=== PATIENT | female | born 1980 | race Caucasian/White ===

== ENCOUNTER 2016-05-15 16:08 | Emergency (ER) ==
[2016-05-15 16:22] VITALS: TEMP 97.2; BMI 32.5
--- NOTE | 2016-05-15 16:48 | ED.PDOC ---
General ED Provider: Dr. YIN ABDUL JR Chief Complaint: Sore Throat Stated Complaint: PROGRESSIVELY LESSENING VOICE AND INCREASING SORE THROAT FOR 1 WEEK COUGHING AT NIGHT (NON PRODUCTIVE) ALONG WITH SORE THROAT AND NO VOICE [End]CLARITHROMYCIN, PREDNISONE DOSE PACK 97.2 79 20 98% 156/110 nephew reportedly had strep has been on clarithro and medrol since 3-13 Time Seen by Physician: 16:43 Mode of Arrival: Walk-In Information Source: Patient Exam Limitations: No limitations, Clinical condition Primary Care Provider: KRISTEN REN Nursing and Triage Documentation Reviewed and Agree: No Review of Systems - Review Of Systems Constitutional: Reports: Malaise (hot flashes) Eyes: Reports: No symptoms Ears, Nose, Mouth, Throat: Reports: Throat pain (hoarseness) Respiratory: Reports: Stridor Cardiac: Reports: No symptoms GI: Reports: No symptoms : Reports: No symptoms Musculoskeletal: Reports: No symptoms Skin: Reports: No symptoms Neurological: Reports: No symptoms Endocrine: Reports: No symptoms Hematologic/Lymphatic: Reports: No symptoms All Other Systems: Other Past Medical History - Past Medical History Endocrine: Reports: None Cardiovascular: Reports: None Respiratory: Reports: None Hematological: Reports: None Gastrointestinal: Reports: None Genitourinary: Reports: None Neuro/Psych: Reports: None Musculoskeletal: Reports: None, Arthritis (djd) Cancer: Reports: None Last Menstrual Period: N/A Other Pertinent Past Medical History: DJD - Surgical History General Surgical History: Reports: Hysterectomy - Family History Family History: Reports: None - Social History Smoking Status: Never smoker Hx Substance Use: No Alcohol Screening: None - Immunizations Tetanus Shot up to Date: No Physical Exam - Physical Exam Appearance: Well-appearing Eyes: DAVID, EOMI, Conjunctiva clear ENT: Exudate (right tonsil) Neck: Supple (tender submandibular nodes) Respiratory: Airway patent, Breath sounds clear, Breath sounds equal, Respirations nonlabored Cardiovascular: RRR, Pulses normal, No rub, No murmur GI/: Soft, Nontender, No masses, Bowel sounds normal, No Organomegaly Musculoskeletal: Normal strength, ROM intact, No edema, No calf tenderness Skin: Warm, Dry, Normal color Neurological: Sensation intact, Motor intact, Reflexes intact, Cranial nerves intact, Alert, Oriented Psychiatric: Affect appropriate, Mood appropriate Critical Care Note - Critical Care Note Total Time (mins): 0 Course - Course Orders, Labs, Meds: Orders Category Date Time Status RAPID FLU A/B Stat LAB 05/15/16 16:37 Uncollected STREP SCREEN Stat LAB 05/15/16 16:37 Uncollected Vital Signs: Temp Pulse Resp BP Pulse Ox 05/15/16 16:08 97.2 F L 79 20 156/110 H 98 Departure - Departure Time of Disposition: 16:52 Disposition: HOME SELF-CARE Discharge Problem: Sore throat symptom Instructions: Pharyngitis (ED) Condition: Fair Pt referred to PMD for follow-up: Yes Additional Instructions: check blood pressure daily and record call PMD in 2 days and report condition antibiotic until cone may stop clarithromycin and medrol may repeat medrol if needed take temperature daily until resolved Prescriptions: Amoxicillin/Potassium Clav [Augmentin 875-125 mg Tab] 1 tab PO BIDWM #20 tablet Methylprednisolone [Medrol Dosepak] 4 mg PO DIRECTED #1 pkg Allergies/Adverse Reactions: Allergies No Known Allergies Allergy (Verified 05/15/16 16:17) Home Medications: Ambulatory Orders Amoxicillin/Potassium Clav [Augmentin 875-125 mg Tab] 1 tab PO BIDWM #20 tablet 05/15/16 Methylprednisolone [Medrol Dosepak] 4 mg PO DIRECTED #1 pkg 05/15/16
[2016-05-15] MEDS ORDERED: SOLU-MEDROL 125 MG IM STA (16:52)
[2016-05-15 17:07] VITALS: BP 156/108
[2016-05-15 17:19] LABS: FLU INTERNAL QC INTERNAL QC VALID; RAPID FLU A NEGATIVE (NEGATIVE); RAPID FLU B NEGATIVE (NEGATIVE)
== END 2016-05-15 17:27 | disposition home or self-care (01) ==
LOC: ED 16:08
DX: J02.9 Acute pharyngitis, unspecified (principal)
CPT/HCPCS: 87651; 87804; 87880; 96372; 99282

== ENCOUNTER 2016-06-18 19:41 | Emergency (ER) ==
[2016-06-18 19:56] VITALS: BP 168/100; TEMP 99.1; BMI 33.7
[2016-06-18 20:29] LABS: BILIRUBIN,URINE Negative (NEGATIVE); KETONES,URINE Negative (NEGATIVE); LEUKOCYTE ESTERASE ,URINE Negative (NEGATIVE); NITRITE,URINE Negative (NEGATIVE); PH,URINE 5.5 (5-9); PROTEIN,URINE Negative (NEGATIVE); URINE, BLOOD 1+ (NEGATIVE)
[2016-06-18 20:35] LABS: ADD URINE MICROSCOPIC YES
[2016-06-18] MEDS ORDERED: STADOL IM STA (20:35)
--- NOTE | 2016-06-18 21:08 | CT ---
EXAM: CT lumbar spine without intravenous contrast 06/18/2016. Sagittal and coronal reformatted im ages obtained HISTORY: Low back pain. Radiculopathy. COMPARISON: 03/10/2013 FINDINGS: A normal lumbar lordosis is maintained. Vertebral bodies appear intact without evidence of fracture the facet joints align normally. There is no fracture or subluxation at any level. The spinal canal appears patent. The neural foramina appear grossly patent. Broad-based phasicity bulge flattens thecal sac most prominent at L3-L4 and L4-L5. IMPRESSION: No acute osseous abnormality of the lumbar spine. Mild degenerative disc disease. Fl attening of the thecal sac at L3-L4 and L4-L5. No definitive spinal stenosis.
--- NOTE | 2016-06-18 21:17 | ED.PDOC ---
General ED Provider: Dr. DELMAR HERNANDEZ Chief Complaint: Back Pain Stated Complaint: Patient presents to the ER with lower back pain for the past 2 days. Has a history of lower back surgery one year ago that went well and has not had any problems since. Denies any trauma or heavy lifting prior to the pain. Has taken Tylenol and Motrin without any relief. Time Seen by Physician: 21:15 Mode of Arrival: Walk-In Information Source: Patient Exam Limitations: No limitations Primary Care Provider: KRISTEN REN Nursing and Triage Documentation Reviewed and Agree: Yes Musculoskeletal Complaint Exam - Back Pain Complaint/Exam Mechanism of Injury: Reports: No known trauma Onset/Duration: 2 days Symptoms Are: Still present Timing: Constant Initial Severity: Moderate Current Severity: Moderate Location: Reports: Discrete (Left lower back ) Character: Reports: Aching, Throbbing Aggravating: Reports: Movements Alleviating: Reports: Rest Associated Signs and Symptoms: Denies: Swelling, Redness, Bruising, Fever, Weakness, Numbness, Tingling, Abdominal pain, Bladder incontinence, Bowel incontinence, Weight loss, Pain with weight bearing TAD Risk Factors: Reports: None AAA Risk Factors: Reports: None Cauda Equina Risk Factors: Reports: None Epidural Abcess Risk Factors: Reports: None Related Surgical History: Reports: Back Surgery (one year ago ) Focal Tenderness: Yes (Lower back ) Paraspinal Muscle Tenderness: Yes Paraspinal Muscle Spasm: Yes Scoliosis: No Lordosis: No Kyphosis: No SLR Test: Right Negative, Left Negative Hip Motion Testing Pain: Right Negative, Left Negative Focal Weakness: Present: None Focal Sensory Loss: Present: None Gait: Present: Normal Back Picture: 1 - pain with tenderness 2 - radiation Differential Diagnoses: Cauda Equina Syndrome, Epidural Abcess, Fracture, Herniated Disk, Strain, Sprain Review of Systems - Review Of Systems Constitutional: Reports: No symptoms Eyes: Reports: No symptoms Ears, Nose, Mouth, Throat: Reports: No symptoms Respiratory: Reports: No symptoms Cardiac: Reports: No symptoms GI: Reports: No symptoms Musculoskeletal: Reports: Back pain, Joint pain Neurological: Reports: Anxiety All Other Systems: Reviewed and Negative Past Medical History - Past Medical History Endocrine: Reports: None Cardiovascular: Reports: None Respiratory: Reports: None Hematological: Reports: None Gastrointestinal: Reports: None Genitourinary: Reports: None Neuro/Psych: Reports: None Musculoskeletal: Reports: None, Arthritis (djd) Cancer: Reports: None Last Menstrual Period: hysterectomy Other Pertinent Past Medical History: DJD - Surgical History General Surgical History: Reports: Hysterectomy - Family History Family History: Reports: None - Social History Smoking Status: Never smoker Hx Substance Use: No Alcohol Screening: None Physical Exam - Physical Exam Appearance: Obese Ill-appearing: Mild Pain Distress: Severe Eyes: DAVID, EOMI, Conjunctiva clear ENT: Ears normal, Nose normal, Oropharynx normal Neck: Supple Respiratory: Airway patent, Breath sounds clear, Breath sounds equal, Respirations nonlabored Cardiovascular: RRR, Pulses normal, No rub, No murmur Musculoskeletal: Limited ROM Skin: Warm Neurological: Sensation intact, Motor intact, Reflexes intact, Cranial nerves intact, Alert, Oriented Psychiatric: Anxious Interpretation - Radiology Interpretation Radiology Interpretation By: Radiologist Radiology Results: Negative Exam Interpreted: CT Scan Critical Care Note - Critical Care Note Total Time (mins): 0 Course - Course Orders, Labs, Meds: Lab Review 06/18/16 20:20 Urine Color Yellow Urine Clarity Clear Urine pH 5.5 Ur Specific [place] >=1.030 Urine Protein Negative Urine Glucose (UA) Negative Urine Ketones Negative Urine Blood 1+ Urine Nitrite Negative Urine Bilirubin Negative Urine Urobilinogen 0.2 Ur Leukocyte Esterase Negative Urine Microscopic RBC 0-2 Ur Squamous Epith Cells 2-5 Orders Category Date Time Status UA [URINALYSIS C & S IF INDICATED] Stat LAB 06/18/16 20:20 Completed Butorphanol Tartrate [Stadol] MEDS 06/18/16 20:35 Discontinued 1 mg IM ONCE STA CT LUMBAR SPINE W/O CONTRAST Stat RADS 06/18/16 20:30 Completed Medications Discontinued Medications Generic Name Dose Route Start Last Admin Trade Name Freq PRN Reason Stop Dose Admin Butorphanol Tartrate 1 mg 06/18/16 20:35 06/18/16 20:41 Stadol IM 06/18/16 20:36 1 mg ONCE STA Administration Vital Signs: Temp Pulse Resp BP Pulse Ox 06/18/16 19:42 99.1 F 91 H 20 168/100 H 98 Departure - Departure Time of Disposition: 21:16 Disposition: HOME SELF-CARE Discharge Problem: Low back sprain, Radiculopathy of lumbosacral region Instructions: Low Back Strain (ED), Lumbar Radiculopathy (ED) Condition: Fair Pt referred to PMD for follow-up: Yes Additional Instructions: Follow up with PCP in 3-5 day for MRI or therapy Take pain medications as prescribed. Prescriptions: Hydrocodone/Acetaminophen [[place] 5-325 Tablet] 1 tab PO Q6HR PRN #20 tablet PRN Reason: PAIN Allergies/Adverse Reactions: Allergies No Known Allergies Allergy (Verified 06/18/16 19:49) Home Medications: Ambulatory Orders Hydrocodone/Acetaminophen [[place] 5-325 Tablet] 1 tab PO Q6HR PRN #20 tablet Disposition Discussed With: Patient
== END 2016-06-18 21:30 | disposition home or self-care (01) ==
LOC: ED 19:41
DX: S33.5XXA Sprain of ligaments of lumbar spine, initial encounter (principal); M54.17 Radiculopathy, lumbosacral region
CPT/HCPCS: 81001; 96372; 99283

== ENCOUNTER 2018-01-06 16:50 | Emergency (ER) ==
[2018-01-06 16:56] VITALS: BP 140/93; TEMP 98; BMI 32.7
--- NOTE | 2018-01-06 17:12 | ED.PDOC ---
General ED Provider: Dr. KRISTEN ROSS Chief Complaint: Respiratory Complaint Stated Complaint: 2 day hx cough and congestion.Green nasal drainage. Non productive cough Time Seen by Physician: 17:10 Mode of Arrival: Walk-In Information Source: Patient Exam Limitations: No limitations Primary Care Provider: KRISTEN REN Nursing and Triage Documentation Reviewed and Agree: Yes Does patient meet sepsis criteria?: No If yes, has appropriate treatment been initiated?: No System Inflammatory Response Syndrome: Not Applicable Sepsis Protocol: For patient's 13 years and over: Temp is 96.8 and below OR 101 and greater Pulse >90 BPM Resp >20/minute Acutely Altered Mental Status Are patient's symptoms suggestive of a new infection, such as: -Pneumonia -Skin, Soft Tissue -Endocarditis -UTI -Bone, Joint Infection -Implantable Device -Acute Abdominal Infection -Wound Infection -Meningitis -Blood Stream Catheter Infection -Unknown Respiratory Complaint Exam - Respiratory Complaint/Exam Onset/Duration: 2d Symptoms Are: Still present Timing: Intermittent Initial Severity: Mild Current Severity: Moderate Location: Chest Character: Reports: Non-productive cough Aggravating: Reports: Exertion, URI Alleviating: Reports: None Associated Signs and Symptoms: Reports: URI, Nasal congestion. Denies: Rapid breathing, Dyspnea, Fever, Chills, Chest pain, Pleuritic chest pain, Wheezing, Hemoptysis, Dizziness, Calf pain, Calf swelling, Edema, Hoarseness, Sinus discomfort, Vomiting, Sore throat, Weight loss, Decreased oral intake, Increased thirst, Increased appetite, Increased urination Related Surgical History: Reports: None Pulmonary Embolism Risk Factors: None Cardiac Risk Factors: Reports: None Pseudomonas Risk Factors: Reports: None Tuberculosis Risk Factors: Reports: None Status Asthmaticus Risk Factors: Reports: None Home Oxygen Use: No Current Asthma Medication Use: No Respiratory Distress: None Inadequate Respiratory Effort: No Dysphagia Present: No Stridor Present: No JVD Present: No Accessory Muscle Use: No Retractions: Not Present Diminished Breath Sounds: No Sinus Tenderness: None Differential Diagnoses: URI Review of Systems - Review Of Systems Constitutional: Reports: No symptoms Eyes: Reports: No symptoms Ears, Nose, Mouth, Throat: Reports: No symptoms Respiratory: Reports: No symptoms Cardiac: Reports: No symptoms GI: Reports: No symptoms : Reports: No symptoms Musculoskeletal: Reports: No symptoms Skin: Reports: No symptoms Neurological: Reports: No symptoms Endocrine: Reports: No symptoms Hematologic/Lymphatic: Reports: No symptoms All Other Systems: Reviewed and Negative Past Medical History - Past Medical History Endocrine: Reports: None Cardiovascular: Reports: None Respiratory: Reports: None Hematological: Reports: None Gastrointestinal: Reports: None Genitourinary: Reports: None Neuro/Psych: Reports: None Musculoskeletal: Reports: None, Arthritis (djd) Cancer: Reports: None Last Menstrual Period: hysterectomy Other Pertinent Past Medical History: DJD - Surgical History General Surgical History: Reports: Hysterectomy - Family History Family History: Reports: None - Social History Smoking Status: Never smoker Hx Substance Use: No Alcohol Screening: None Physical Exam - Physical Exam Appearance: Well-appearing, No pain distress, Well-nourished Eyes: DAVID, EOMI, Conjunctiva clear ENT: Ears normal, Nose normal (minimal congestion ), Oropharynx normal Respiratory: Airway patent, Breath sounds clear, Breath sounds equal (No appreciable wheezes, crackles or rhonchi), Respirations nonlabored Cardiovascular: RRR, Pulses normal, No rub, No murmur GI/: Soft, Nontender, No masses, Bowel sounds normal, No Organomegaly Musculoskeletal: Normal strength, ROM intact, No edema, No calf tenderness Skin: Warm, Dry, Normal color Neurological: Sensation intact, Motor intact, Reflexes intact, Cranial nerves intact, Alert, Oriented Psychiatric: Affect appropriate, Mood appropriate Critical Care Note - Critical Care Note Total Time (mins): 0 Course - Course Hematology/Chemistry: 01/06/18 17:27 01/06/18 17:27 Orders, Labs, Meds: Lab Review 01/06/18 01/06/18 01/06/18 17:21 17:27 17:27 WBC 9.00 RBC 4.19 L Hgb 11.9 L Hct 35.6 L MCV 85.0 MCH 28.4 MCHC 33.4 RDW Coeff of Iain 13.2 Plt Count 178 Immature Gran % (Auto) 0.1 Neut % (Auto) 65.5 Lymph % (Auto) 22.6 [place] % (Auto) 8.7 Eos % (Auto) 2.7 Baso % (Auto) 0.4 Immature Gran # (Auto) 0.0 Neut # (Auto) 5.9 Lymph # (Auto) 2.0 [place] # (Auto) 0.8 Eos # (Auto) 0.2 Baso # (Auto) 0.0 Sodium 139.9 Potassium 3.81 Chloride 103.5 Carbon Dioxide 31.5 H Anion Gap 8.71 BUN 18.7 H Creatinine 0.70 Estimated GFR (MDRD) 95.00 BUN/Creatinine Ratio 26.71 Glucose 95.8 Calcium 9.37 Total Bilirubin 0.48 AST 23.5 ALT 18.6 Alkaline Phosphatase 84.6 Total Protein 7.85 Albumin 4.31 Globulin 3.54 Albumin/Globulin Ratio 1.21 Influ A Molecular Assay Negative by naat Influ B Molecular Assay Negative by naat Orders Category Date Time Status CBC W/ AUTO DIFF Stat LAB 01/06/18 17:27 Completed CMP [COMPREHENSIVE METABOLIC PANEL] Stat LAB 01/06/18 17:27 Completed FLU A & B MOLECULAR [FLU A/B MOLECULAR] Stat LAB 01/06/18 17:21 Completed RAPID STREP SCREEN [MOLECULAR GROUP A STREP] Stat LAB 01/06/18 17:21 Completed CHEST, 1V AP ONLY Stat RADS 01/06/18 17:14 Ordered Vital Signs: Temp Pulse Resp BP Pulse Ox 01/06/18 16:51 98 F 82 20 140/93 H 98 Departure - Departure Time of Disposition: 17:50 Disposition: HOME SELF-CARE Discharge Problem: URI (upper respiratory infection) Instructions: Upper Respiratory Infection (ED) Condition: Good Pt referred to PMD for follow-up: Yes (1 week) IPMP verified?: No Additional Instructions: Take Robitussion DM 2 tsp 4 times daily as needed Tylenol or advil for headache or body aches Keep well hydrated Prescriptions: Azithromycin [Zithromax] 250 mg PO DAILY #6 tablet Allergies/Adverse Reactions: Allergies No Known Allergies Allergy (Verified 01/06/18 16:56) Home Medications: Ambulatory Orders Hydrocodone/Acetaminophen [[place] 5-325 Tablet] 1 tab PO Q6HR PRN #20 tablet Azithromycin [Zithromax] 250 mg PO DAILY #6 tablet 01/06/18 Disposition Discussed With: Patient
== END 2018-01-06 18:02 | disposition home or self-care (01) ==
LOC: ED 16:50
DX: J06.9 Acute upper respiratory infection, unspecified (principal)
CPT/HCPCS: 36415; 80053; 85025; 87502; 87651; 99283